=== PATIENT | female | born 1995 | race Caucasian/White ===

== ENCOUNTER 2022-01-26 07:34 | Emergency (ER) | payer OTHER, SELFPAY ==
--- NOTE | ~2022-01-26 | CT_ITS ---
EXAMINATION: CT ABDOMEN AND PELVIS WITH CONTRAST CLINICAL INFORMATION: Left flank pain and left lower quadrant pain and tenderness COMPARISON: None TECHNIQUE: Multidetector volumetric images were obtained from the superior aspect of the liver through the pubic symphysis following administration 85 mL of Omnipaque 350 intravenous contrast. Sagittal and coronal reformatted images were obtained on the technologist's workstation. Oral contrast: No This CT examination was performed using dose optimization techniques as appropriate, variously including the following: *Automated exposure control *Adjustment of mA and/or kV according to patient size (this includes techniques or standardized protocols for targeted exams where dose is matched to indication/reason for exam; i.e. extremities or head) *Use of iterative reconstruction technique DLP: 940 mGy-cm FINDINGS: LUNG BASES: The visualized lung bases are unremarkable. LIVER, GALLBLADDER, AND BILIARY TREE: Moderate hepatic steatosis. No focal hepatic mass. No intrahepatic biliary dilatation. Gallbladder absent. PANCREAS: Unremarkable. SPLEEN: Unremarkable. ADRENAL GLANDS: Unremarkable. KIDNEYS AND URETERS: There is mild left hydronephrosis. The left ureter is slightly dilated and there is a small stone in the bladder just past the left UVJ. There is mild left perinephric stranding. There is a 1 mm nonobstructive stone, in the mid to lower right kidney. No right hydronephrosis. BLADDER: Tiny stone in the bladder just past the left UVJ at 3 mm. GASTROINTESTINAL TRACT: No bowel obstruction. Appendix normal. No left lower quadrant inflammation. ABDOMINAL WALL: No significant hernia is appreciated. LYMPH NODES: Normal. VASCULAR: Unremarkable. PELVIC VISCERA: A few tiny punctate calcifications are observed in the uterus. No adnexal masses. OSSEOUS STRUCTURES: Mild spondylitic change lower thoracic spine. CT/CT abdomen pelvis w IV con IMPRESSION: Small stone in the bladder just past the left UVJ with residual left ureteral pyelocaliectasis. Fleischner guidelines were followed.
[2022-01-26 07:48] VITALS: BP 161/98; PULSE 67; RESP 16; TEMP 36.4; O2SAT 96; BMI 52.1
[2022-01-26 07:50] VITALS: PULSE 65; RESP 18; O2SAT 99
--- NOTE | 2022-01-26 08:03 | ED_ITS ---
HPI - Abdominal Pain General Chief Complaint: Abdominal Pain Stated Complaint: Pain in L side/back Time Seen by Provider: 01/26/22 07:50 Source: patient Mode of arrival: ambulatory Limitations: no limitations History of Present Illness HPI narrative: Patient presents emergency department for evaluation of left-sided abdominal pain and left flank pain. Onset was 2 days ago. This morning she had a single episode of vomiting, does not recall the fall or the emesis. She states that pain came on suddenly. When asked she states that she may have some urinary frequency/ dysuria but it is mild. at first she thought it may be related to her menstrual cycle that was just ending, but reports this does not feel typical of menstrual cramping for her. she is currently sexually active not using any form of control. Reports that she took ibuprofen 4 hours ago without any improvement. Denies fevers, chills, right-sided abdominal pain, Hematuria, abnormal vaginal discharge, abnormal vaginal bleeding, chest pain, palpitations, shortness of breath, difficulty breathing. Denies any fall or potential injury that would have caused this. Related Data Previous Rx's Medication Instructions Recorded naproxen 500 mg tablet 500 mg PO BID PRN pain #14 tabs 01/26/22 ondansetron 4 mg disintegrating 4 mg PO Q8H PRN nausea and 01/26/22 tablet vomiting #10 tabs tamsulosin 0.4 mg capsule 0.4 mg PO BEDTIME #14 caps 01/26/22 Allergies Allergy/AdvReac Type Severity Reaction Status Date / Time amoxicillin [AMOXICILLIN] Allergy Unknown UNKNOWN Verified 01/26/22 07:49 cefaclor [From CECLOR] Allergy Unknown UNKNOWN Verified 01/26/22 07:49 Penicillins [PENICILLINS] Allergy Unknown UNKNOWN Verified 01/26/22 07:49 Review of Systems Review of Systems Constitutional : No Weight loss, No Fever, No Chills ENT/Mouth :? No sore throat, No Rhinorrhea Eyes: No Swelling, No Redness Cardiovascular : No Chest Pain, No SOB, No Edema Respiratory : No Cough, No Sputum, No Wheezing Gastrointestinal : Positive Nausea, Positive Vomiting, No Diarrhea, positive abdominal pain, No Hematochezia, No Melena Genitourinary : positive Dysuria, positive Urinary Frequency, No Hematuria, No Urgency? Musculoskeletal : No joint pain, No Myalgias, No Joint Swelling Skin : No Skin Lesions, No rash Neuro : No Weakness, No Numbness, No Dizziness, No Headache Psych : No Anxiety/Panic, No Depression Heme/Lymph: No Bruising, No Lymphadenopathy Endocrine : No Polyuria, No Polydipsia [facility] Past Medical History Attestation statement: The following information was validated with the patient. Source: old records reviewed Social History Social History Patient Tobacco Use Status: Current everyday Tobacco user Use of substances other than those prescribed or required for medical reasons: No Advance Directives: No Advance Directives Information Provided: No Patient : No Physical Exam ED Vital Signs: Vital Signs - 24 hr 01/26/22 07:48 01/26/22 07:50 01/26/22 10:00 Temperature 97.5 F Pulse Rate 67 65 54 Respiratory Rate 16 18 16 Blood Pressure 161/98 H 144/87 H Pulse Oximetry 96 99 100 Oxygen Delivery Method Room Air Room Air Room Air BMI result Body Mass Index 52.1 Appearance: Alert.?Oriented to person, place and time. No acute distress.?Normal affect. Eyes: Pupils equal, round and reactive to light.? ENT: Pharynx normal.?? Neck: Normal inspection.? Neck supple.?? CVS: Heart sounds normal. Normal heart rate and rhythm.? Pulses normal.?? Respiratory: No respiratory distress.? Lung sounds clear to auscultation bilaterally?? Abdomen: Soft with left lower quadrant and left upper quadrant tenderness upon palpation. Normoactive bowel sounds. no CVA tenderness Skin: Skin warm and dry.? Normal skin color.? Extremities: No lower extremity edema.? Neuro: Moves all extremities spontaneously. Sensation intact bilaterally. No focal neuro deficits. Ambulates with normal steady gait. Course Course Course Narrative: patient is a 26-year-old female with no significant past medical history who presents emergency department for evaluation of abdominal pain with vomiting. Upon physical exam she appears uncomfortable, difficulty sitting still in the room she is pacing back and forth. Noted to be hypertensive 161/98, which may be secondary to pain response given she has no documented history of hypertension, otherwise vital signs are stable she is afebrile without tachycardia. Will obtain CBC to evaluate for leukocytosis/ anemia, CMP and lipase to evaluate for abnormal electrolytes /abnormal renal function/ abnormal hepatic/biliary function, and Urinalysis with urine . CT of the abdomen and pelvis to evaluate for nephrolithiasis, hydronephrosis, pyelonephritis, diverticulitis. patient received 1 L normal saline IV fluids, ondansetron IV for nausea, morphine IV for pain. Disposition pending results. Reevaluation(s) Reevaluation #1: CBC reveals a normocytic anemia no evidence of leukocytosis. CMP is overall unremarkable, mildly elevated BUN at 21 creatinine 0.8. Urine test is negative, urinalysis reveals microscopic hematuria. CT reveals mild left hydronephrosis and mild left perinephric stranding, small stone, 3mm, in the bladder just past the left UVJ with residual left ureteral pyelocaliectasis, 1 mm nonobstructive stone in the mid to lower right kidney without hydronephrosis. no evidence of obstruction or infection at this time. Patient had declined morphine for pain earlier, reporting pain to be tolerable at 4/10. Discussed plan of care for discharge home, outpatient follow-up with Urology, tamsulosin orally and naproxen orally as needed for pain. Reviewed worsening signs and symptoms to return back to emergency department for. All questions were answered, patient discharged home in stable condition. Time: 10:35 MDM - Abdominal Pain Medical Records Attestation: I reviewed the patient's medical records. Lab Data Attestation: I reviewed the patient's lab results. Result diagrams: 01/26/22 08:23 01/26/22 08:23 Labs: Lab Results 01/26/22 01/26/22 01/26/22 Range/Units 08:23 08:23 08:23 WBC 9.8 (4.8-10.8) X10*3/uL RBC 4.38 (4.20-5.50) X10*6/uL Hgb 11.9 L (12.0-16.0) g/dl Hct 35.6 L (37.0-47.0) % MCV 81.3 (80.0-98.0) fL MCH 27.2 (27.0-33.0) pg MCHC 33.4 (31.0-35.0) g/dl RDW 13.7 (11.0-16.0) % Plt Count 408 H (160-400) X10*3/uL MPV 9.5 (9.4-12.3) fL Immature Gran % (Auto) 0.5 H (0.0-0.4) % Neut % (Auto) 73.0 (45-73) % Lymph % (Auto) 18.6 L (20-40) % Caroline % (Auto) 5.8 (2-11) % Eos % (Auto) 1.8 (0-4) % Baso % (Auto) 0.3 (0-2) % Lymph # (Auto) 1.8 (1.2-4.9) X10*3/uL Caroline # (Auto) 0.6 (0.1-1.2) X10*3/uL Eos # (Auto) 0.2 (0.0-0.4) X10*3/uL Baso # (Auto) 0.0 (0.0-0.2) X10*3/uL Abs Immat Gran (auto) 0.05 H (0.00-0.03) X10*3/uL Absolute Neuts (auto) 7.2 (2.0-8.3) x10*3/uL Absolute Nucleated RBC 0.000 (0.0-0.012) X10*3/uL Nucleated RBC % (auto) 0.0 (0.0-0.2) /100WBC Sodium 137 (135-145) mmol/L Potassium 4.2 (3.3-5.1) mmol/L Chloride 105 (96-108) mmol/L Carbon Dioxide 22 (22-29) mmol/L Anion Gap 14 (12-20) BUN 21 H (9-16) mg/dL Creatinine 0.80 (0.5-1.4) mg/dL Estim Creat Clear Calc 125.1 Estimated GFR > 60 Random Glucose 109 (60-115) mg/dL Calcium 9.4 (8.4-10.2) mg/dL Total Bilirubin 0.3 (0.0-1.0) mg/dL AST 15 (5-31) U/L ALT 14 (0-31) U/L Alkaline Phosphatase 64 (39-117) U/L Total Protein 7.5 (6.5-8.0) g/dL Albumin 4.2 (3.5-5.0) g/dL Lipase 13 (8-78) U/L Urine Color Yellow Urine Appearance Clear Urine pH 6.0 (5.0-9.0) Ur Specific [place] 1.025 (1.005-1.025) Urine Protein Negative (Neg-Trace) mg/dL Urine Glucose (UA) Negative (Negative) mg/dL Urine Ketones Negative (Negative) mg/dL Urine Blood Large (3+) H (Negative) Urine Nitrite Negative (Negative) Ur Leukocyte Esterase Negative (Negative) Urine RBC >20 H (0-2) /HPF Urine WBC 0-5 (0-5) /HPF Ur Squamous Epith Cells 3-5 (0-2) /HPF Urine Bacteria None Seen (None Seen) Hyaline Casts 0-2 (0-2) /LPF Urine Test (NEGATIVE) 01/26/22 Range/Units 08:23 WBC (4.8-10.8) X10*3/uL RBC (4.20-5.50) X10*6/uL Hgb (12.0-16.0) g/dl Hct (37.0-47.0) % MCV (80.0-98.0) fL MCH (27.0-33.0) pg MCHC (31.0-35.0) g/dl RDW (11.0-16.0) % Plt Count (160-400) X10*3/uL MPV (9.4-12.3) fL Immature Gran % (Auto) (0.0-0.4) % Neut % (Auto) (45-73) % Lymph % (Auto) (20-40) % Caroline % (Auto) (2-11) % Eos % (Auto) (0-4) % Baso % (Auto) (0-2) % Lymph # (Auto) (1.2-4.9) X10*3/uL Caroline # (Auto) (0.1-1.2) X10*3/uL Eos # (Auto) (0.0-0.4) X10*3/uL Baso # (Auto) (0.0-0.2) X10*3/uL Abs Immat Gran (auto) (0.00-0.03) X10*3/uL Absolute Neuts (auto) (2.0-8.3) x10*3/uL Absolute Nucleated RBC (0.0-0.012) X10*3/uL Nucleated RBC % (auto) (0.0-0.2) /100WBC Sodium (135-145) mmol/L Potassium (3.3-5.1) mmol/L Chloride (96-108) mmol/L Carbon Dioxide (22-29) mmol/L Anion Gap (12-20) BUN (9-16) mg/dL Creatinine (0.5-1.4) mg/dL Estim Creat Clear Calc Estimated GFR Random Glucose (60-115) mg/dL Calcium (8.4-10.2) mg/dL Total Bilirubin (0.0-1.0) mg/dL AST (5-31) U/L ALT (0-31) U/L Alkaline Phosphatase (39-117) U/L Total Protein (6.5-8.0) g/dL Albumin (3.5-5.0) g/dL Lipase (8-78) U/L Urine Color Urine Appearance Urine pH (5.0-9.0) Ur Specific [place] (1.005-1.025) Urine Protein (Neg-Trace) mg/dL Urine Glucose (UA) (Negative) mg/dL Urine Ketones (Negative) mg/dL Urine Blood (Negative) Urine Nitrite (Negative) Ur Leukocyte Esterase (Negative) Urine RBC (0-2) /HPF Urine WBC (0-5) /HPF Ur Squamous Epith Cells (0-2) /HPF Urine Bacteria (None Seen) Hyaline Casts (0-2) /LPF Urine Test NEGATIVE (NEGATIVE) Imaging Data CT scan - abdomen: Radiologist's impression: CT/CT abdomen pelvis w IV con IMPRESSION: Small stone in the bladder just past the left UVJ with residual left ureteral pyelocaliectasis.? Discharge Plan Discharge Clinical Impression: Bilateral nephrolithiasis, Bilateral renal colic Patient Disposition: Home, Self-Care Instructions: Kidney Stones (ED), Renal Colic (ED) Additional Instructions: As we discussed, the CT scan shows that you have passed a kidney stone from the left kidney, and you also have a kidney stone present to the right kidney that has not yet passed. This is small enough that you should be able to pass it on your own. You have been given 2 prescriptions naproxen to use as needed for pain, Do not take additional [id number] medications such as ibuprofen / Motrin / Advil / Aleve / aspirin while taking this medication. Please take it with food to prevent any stomach upset. Take ondansetron to use as needed for nausea. Please take tamsulosin daily at bedtime. Contact urologist to schedule an appointment for outpatient follow-up within 1 week. Return to emergency department with any new or worsening symptoms or concerns. Contact your primary care provider to arrange for follow-up as well. Prescriptions: New tamsulosin 0.4 mg capsule 0.4 mg PO BEDTIME Qty: 14 0RF naproxen 500 mg tablet 500 mg PO BID PRN (Reason: pain) Qty: 14 0RF ondansetron 4 mg tablet,disintegrating 4 mg PO Q8H PRN (Reason: nausea and vomiting) Qty: 10 0RF Referrals: Jonatan Ventura MD [Physician] - Interventions: ED Discharge Assessment Last Done: 01/26/22 11:27 Discharge Date/Time: 01/26/22 11:27
[2022-01-26] MEDS: 0.9 % Sodium Chloride 1,000 ML 999 ML IV (08:24)
[2022-01-26] MEDS: ondansetron HCL 4 MG/2 ML VIAL IVPUSH (08:24)
[2022-01-26 08:32] LABS: MANUAL DIFF FLAG NO
[2022-01-26 08:34] LABS: Basophils Percent Auto 0.3 % (0-2); Eosinophils Absolute Auto 0.2 X10*3/uL (0.0-0.4); Eosinophils Percent Auto 1.8 % (0-4); Hematocrit 35.6 % (37.0-47.0); Hemoglobin 11.9 g/dl (12.0-16.0); Imm Gran Abs Auto 0.05 X10*3/uL (0.00-0.03); Imm Gran Pct Auto 0.5 % (0.0-0.4); Lymphocytes Absolute Auto 1.8 X10*3/uL (1.2-4.9); Lymphocytes Percent Auto 18.6 % (20-40); Mean Corpuscular HGB Conc 33.4 g/dl (31.0-35.0); Mean Corpuscular Hemoglobin 27.2 pg (27.0-33.0); Mean Corpuscular Volume 81.3 fL (80.0-98.0); Mean Platelet Volume 9.5 fL (9.4-12.3); Monocytes Absolute Auto 0.6 X10*3/uL (0.1-1.2); Monocytes Percent Auto 5.8 % (2-11); Neutrophils Absolute Auto 7.2 x10*3/uL (2.0-8.3); Platelet Count 408 X10*3/uL (160-400); Red Blood Count 4.38 X10*6/uL (4.20-5.50); Red Cell Distribution Width 13.7 % (11.0-16.0); White Blood Count 9.8 X10*3/uL (4.8-10.8)
[2022-01-26 08:39] LABS: Appearance Urine Clear; Color Urine Yellow; Glucose Urine UA Negative (Negative); Leukocyte Esterase Urine Negative (Negative); Nitrite Urine Negative (Negative); Specific Gravity - Urine 1.025 (1.005-1.025); UMIC TRIGGER UACC YES; Urine Blood Large (3+) (Negative); Urine Ketones Negative (Negative); Urine Protein Negative (Neg-Trace)
[2022-01-26 08:41] LABS: UPreg QC Valid YES; Urine Pregnancy NEGATIVE (NEGATIVE)
[2022-01-26 08:42] LABS: Bacteria Urine None Seen (None Seen); Hyaline Casts Urine 0-2 /LPF (0-2); RBC Urine >20 /HPF (0-2); WBC Urine 0-5 /HPF (0-5)
[2022-01-26 08:53] LABS: Alanine Aminotransferase 14 U/L (0-31); Albumin Level 4.2 g/dL (3.5-5.0); Alkaline Phosphatase 64 U/L (39-117); Anion Gap 14 (12-20); Aspartate Amino Transferase 15 U/L (5-31); Bilirubin Total 0.3 mg/dL (0.0-1.0); Blood Urea Nitrogen 21 mg/dL (9-16); Calcium 9.4 mg/dL (8.4-10.2); Carbon Dioxide 22 mmol/L (22-29); Chloride 105 mmol/L (96-108); Creatinine Clr Calc Pharmacy 125.1; Estimated Glomerular Filt Rate > 60; Glucose Random 109 mg/dL (60-115); Lipase 13 U/L (8-78); Potassium 4.2 mmol/L (3.3-5.1); Sodium 137 mmol/L (135-145); Total Protein 7.5 g/dL (6.5-8.0)
[2022-01-26] MEDS: iohexoL 350 MG/ML 100 ML INFUS..BTL 85 ML IV (09:36)
--- NOTE | 2022-01-26 09:38 | PC.NURSE ---
Pt to and from CT scan without incident
[2022-01-26 10:00] VITALS: BP 144/87; PULSE 54; RESP 16; O2SAT 100
== END 2022-01-26 11:27 | disposition home or self-care (01) ==
PROVIDERS: Nurse Practitioner Family; Emergency Provider Student in an Organized Health Care Education/Training Program; PCP Internal Medicine
DX: N20.0 Calculus of kidney (principal); R31.29 Other microscopic hematuria; D64.9 Anemia, unspecified
CPT/HCPCS: 36415; 74177; 80053; 81001; 81025; 83690; 85025; 96360; 96361; 96375; 99284; J2405; Q9967

== ENCOUNTER → 2023-02-19 10:13 | Outpatient (BNVA) | payer SELFPAY | PROVIDERS: PCP Internal Medicine; Visit Provider Physician Assistant Medical | DX: Z02.79 Encounter for issue of other medical certificate (principal) ==